=== PATIENT | male | born 1985 | race Caucasian/White ===

== ENCOUNTER 2018-11-16 17:58 | Inpatient (IN) | payer OTHER ==
[2018-11-16] MEDS ORDERED: LORazepam 2 MG/ML SDV VIAL ONE (18:08)
[2018-11-16] MEDS ORDERED: LORazepam 2 MG/ML SDV VIAL IVPUSH ONE (18:10)
[2018-11-16] MEDS ORDERED: SODIUM CHLORIDE 0.9% 500 ML INFUS.BAG IV ONE (18:14)
--- NOTE | 2018-11-16 18:35 | PDOC ---
History of Present Illness <Ruby Bacon - Last Filed: 11/16/18 20:31> - General History Source: Patient, Parent(s) Exam Limitations: No Limitations - History of Present Illness Initial Comments: 11/16/18 18:32 33yo M with PMH of alcohol use presenting to ED with parents for seizure. Per father, patient has been drinking approximately 1L of alcohol daily for the past year. Last drink was 11/08/2018 and patient presented to [facility] for withdrawal. There he was noted to have seizures and was in the ICU for DT. He was discharged today and on the way back home, he had a seizure in the car. Approximately 10m into being brought to the ED here, patient had another seizure. Father states that prior to the seizure, pt was having a hallucination of a butterfly and was tracking it. Pt givn 2mg IM Ativan and has returned to baseline. He denies headache, abdominal pain, n/v/d, chest pain, sob, back pain , hallucinations, paresthesias. PMD: none PSH: none PMH: none Allergies:nkda Social: alcohol use, marijuana use Meds: (from [facility]): folic acid, thiamine, multivitamin +folic acid <Larissa Araujo - Last Filed: 11/17/18 00:52> - General Chief Complaint: Seizure Stated Complaint: SEIZURE Time Seen by Provider: 11/16/18 18:11 Past History <Ruby Bacon - Last Filed: 11/16/18 20:31> <Larissa Araujo - Last Filed: 11/17/18 00:52> - Past Medical History Allergies/Adverse Reactions: Allergies Allergy/AdvReac Type Severity Reaction Status Date / Time No Known Drug Allergies Allergy Verified 11/16/18 18:30 Home Medications: Ambulatory Orders NK [No Known Home Medication] 11/16/18 *Physical Exam - Vital Signs Last Vital Signs Temp Pulse Resp BP Pulse Ox 98.7 F 86 18 141/90 100 11/16/18 18:31 11/16/18 18:31 11/16/18 18:31 11/16/18 18:31 11/16/18 18:31 <Ruby Bacon - Last Filed: 11/16/18 20:31> - Physical Exam General Appearance: Yes: Nourished, Appropriately Dressed. No: Apparent Distress HEENT: positive: EOMI, DEBORA, Other (superficial tongue laceration) Neck: positive: Trachea midline, Supple. negative: Lymphadenopathy (R), Lymphadenopathy (L) Respiratory/Chest: positive: Lungs Clear, Normal Breath Sounds. negative: Crackles, Rales, Rhonchi, Stridor, Wheezing Cardiovascular: positive: Regular Rhythm, Regular Rate, S1, S2. negative: Edema , JVD, Murmur Vascular Pulses: Dorsalis-Pedis (R): 2+, Doralis-Pedis (L): 2+ Gastrointestinal/Abdominal: positive: Normal Bowel Sounds, Soft. negative: Tender Musculoskeletal: negative: CVA Tenderness, Muscle Spasm Extremity: positive: Normal Capillary Refill, Other (RUE: old bruising on arm and forearm). 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 negative: Facial Droop, Numbness <Larissa Araujo - Last Filed: 11/17/18 00:52> ED Treatment Course - LABORATORY CBC & Chemistry Diagram: 11/16/18 18:36 11/16/18 18:36 - ADDITIONAL ORDERS Additional order review: Laboratory Results 11/16/18 11/16/18 11/16/18 18:36 18:36 18:36 PT with INR 12.70 INR 1.08 Sodium 141 Potassium 3.6 Chloride 104 Carbon Dioxide 13 L Anion Gap 24 H BUN 5.4 L Creatinine 1.0 Est GFR (CKD-EPI)AfAm 114.91 Est GFR (CKD-EPI)NonAf 99.15 Random Glucose 132 H Calcium 9.6 Total Bilirubin 0.6 AST 91 H ALT 31 Alkaline Phosphatase 62 Total Protein 7.4 Albumin 4.1 Opiates Screen Methadone Screen Barbiturate Screen Phencyclidine Screen Ur Amphetamines Screen MDMA (Ecstasy) Screen Benzodiazepines Screen Cocaine Screen U Marijuana (THC) Screen Alcohol, Quantitative < 3.0 11/16/18 18:30 PT with INR INR Sodium Potassium Chloride Carbon Dioxide Anion Gap BUN Creatinine Est GFR (CKD-EPI)AfAm Est GFR (CKD-EPI)NonAf Random Glucose Calcium Total Bilirubin AST ALT Alkaline Phosphatase Total Protein Albumin Opiates Screen Negative Methadone Screen Negative Barbiturate Screen Negative Phencyclidine Screen Negative Ur Amphetamines Screen Negative MDMA (Ecstasy) Screen Negative Benzodiazepines Screen Positive A* Cocaine Screen Negative U Marijuana (THC) Screen Negative Alcohol, Quantitative 11/16/18 18:36 RBC 3.55 L MCV 102.9 H MCHC 32.1 RDW 14.3 MPV 9.0 Neutrophils % 46.3 Lymphocytes % 30.0 Monocytes % 18.5 H Eosinophils % 2.8 Basophils % 2.4 H - RADIOLOGY Radiology Studies Ordered: Category Date Time Status CHEST X-RAY PORTABLE* [RAD] Stat Radiology 11/16/18 18:12 Completed - Medications Given in the ED: ED Medications Discontinued Medications Generic Name Dose Route Start Last Admin Trade Name Freq PRN Reason Stop Dose Admin Lorazepam 2 mg 11/16/18 18:05 11/16/18 19:01 Ativan Injection - IM 11/16/18 18:06 2 mg ONCE ONE Administration Lorazepam 2 mg 11/16/18 18:10 11/16/18 19:03 Ativan Injection - IVPUSH 11/16/18 18:11 2 mg ONCE ONE Administration Sodium Chloride 1,000 ml 11/16/18 18:14 11/16/18 19:10 Normal Saline - IV 11/16/18 18:15 1,000 ml ONCE ONE Administration <Ruby Bacon - Last Filed: 11/16/18 20:31> - LABORATORY CBC & Chemistry Diagram: 11/16/18 18:36 11/16/18 18:36 <Larissa Araujo - Last Filed: 11/17/18 00:52> Medical Decision Making - Critical Care Time Total Critical Care Time (minutes): 30 (seizure, alcohol withdrawal syndrome) Critical Care Statement: The care of this patient involved high complexity decision making to prevent further life threatening deterioration of the patient 's condition and/or to evaluate & treat vital organ system(s) failure or risk of failure. <Ruby Bacon - Last Filed: 11/16/18 20:31> - Critical Care Time Total Critical Care Time (minutes): 30 Critical Care Statement: The care of this patient involved high complexity decision making to prevent further life threatening deterioration of the patient 's condition and/or to evaluate & treat vital organ system(s) failure or risk of failure. - Medical Decision Making 11/16/18 18:42 33yo M with alcohol use presenting to ED with seizures. no h/o seizure d/o. likely 2/2 alcohol withdrawal. pt had witnessed seizure in ED with tongue biting, foaming and stiffness. 2mg IM ativan ordered; broke seizure. pt at baseline. labs wnl. MCV elevated. giving fluids, folic acid. pt has not had seizures since medications given. ekg: sinus bradycadia at 56bpm, no lexy elevations or depressions, intervals wnl. accepted by hospitalist. admitted to tele for withdrawal seizures. <Larissa Araujo - Last Filed: 11/17/18 00:52> Discharge <Ruby Bacon - Last Filed: 11/16/18 20:31> - Discharge Information Problems reviewed: Yes - Admission Yes <Larissa Araujo - Last Filed: 11/17/18 00:52> - Discharge Information Clinical Impression/Diagnosis: Seizure Alcohol withdrawal Qualifiers: Complication of substance-induced condition: with unspecified complication Qualified Code(s): F10.239 - Alcohol dependence with withdrawal, unspecified Condition: Stable
[2018-11-16 18:49] LABS: BASO % 2.4 % (0-2.0); EOS % 2.8 % (0-4.5); HEMATOCRIT 36.6 % (35.4-49); HEMOGLOBIN 11.7 GM/dL (11.7-16.9); MCHC 32.1 g/dl (32.0-35.9); MEAN CELL VOLUME 102.9 fl (80-96); MONO % 18.5 % (3.8-10.2); NEUT % 46.3 % (42.8-82.8); PLATELET COUNT 357 K/MM3 (134-434); RBC 3.55 M/mm3 (4.00-5.60); RDW 14.3 % (11.9-15.9); WHITE BLOOD COUNT 9.8 K/mm3 (4.0-10.0)
[2018-11-16 18:58] LABS: INR 1.08 (0.83-1.09); PROTHROMBIN TIME (PATIENT) 12.7 SEC (9.7-13.0)
--- NOTE | 2018-11-16 19:03 | PDOC ---
Attending Attestation - Resident Resident Name: Larissa Araujo - ED Attending Attestation I have performed the following: I have examined & evaluated the patient, The case was reviewed & discussed with the resident, I agree w/resident's findings & plan - HPI HPI: 11/16/18 18:58 33yo M with PMH of alcohol use presenting to ED with parents for seizure. Per father, patient has been drinking approximately 1L of alcohol daily for the past year. Last drink was 11/08/2018 and patient presented to [facility] and admitted to ICU x 1 week for acute alcohol withdrawal with DTs. He was discharged today and on the way back home, he had a seizure in the car, +hallucination. Father states that prior to the seizure, pt was having a hallucination of a butterfly and was tracking it. history provided by father at bedside. - Physicial Exam PE: 11/16/18 19:02 Agree with the resident's HPI and PE as documented in the electronic medical record. +actively seizing, foaming at mouth. in severe distress. EOMI, PERRL, neck supple. lungs with b/l rhonchi, +tachy. abdomen soft nontender.+increased tonicity and jerking (generalized) PRYOR x4, No peripheral edema. normal color for ethnicity, WWP. - Medical Decision Making 11/16/18 19:03 See HPI for details. Prior notes reviewed, including admissions, discharges and consultations. Vital signs reviewed, wnl. Vital Signs Temp Pulse Resp BP Pulse Ox 98.7 F 86 18 141/90 100 11/16/18 18:31 11/16/18 18:31 11/16/18 18:31 11/16/18 18:31 11/16/18 18:31 laboratory results and imaging reviewed, basic labs and lytes wnl, utox with benzo, as expected with etoh w/d treatment. EKG normal sinus rhythm, no interval abnormalities, narrow QRS, ST and T wave segments and morphology normal. Nonspecific T wave abnormalities ED course -interventions: ativan, o2, IVF on reassessment 1900 - back to baseline, awake and alert. monitoring for further sz give banana bag and repletion given alcohol abuse history. Admit for acute alcohol w/d seizure. Discussed results and management plan with pt and family member at bedside, agree with impression, treatment indications, recommendations and plan. s/o to hospitalist team regarding admission 11/16/18 20:30
[2018-11-16] MEDS ORDERED: FOLIC ACID INJECTION - 1 MG, THIAMINE HCL 100 MG, MULTIVIT INJECTION ADULT 10 ML in SOD... IVPB ONE ×2 (19:04→22:54)
[2018-11-16 19:10] LABS: COCAINE, UR NEGATIVE ng/ml (CUTOFF=300); METHADONE, UR NEGATIVE ng/ml (CUTOFF=300); OPIATES, URI NEGATIVE ng/ml (CUTOFF=300); PHENCYCLIDINE,URINE NEGATIVE ng/ml (CUTOFF=25); URINE AMPHETAMINES NEGATIVE ng/ml (CUTOFF=500); URINE BARBITURATES NEGATIVE ng/ml (CUTOFF=200)
[2018-11-16 19:14] LABS: URINE BENZODIAZEPINES POSITIVE ng/ml (CUTOFF=200)
[2018-11-16 19:15] LABS: ALBUMIN 4.1 g/dl (3.4-5.0); BILIRUBIN,TOTAL 0.6 mg/dL (0.2-1); BLOOD UREA NITROGEN 5.4 mg/dL (7-18); CALCIUM 9.6 mg/dL (8.5-10.1); POTASSIUM 3.6 mmol/L (3.5-5.1); TOT PROT 7.4 g/dl (6.4-8.2)
[2018-11-16 19:25] LABS: MACROCYTOSIS 2+; PLATELET ESTIMATE NORMAL
[2018-11-16] MEDS ORDERED: levETIRAcetam 500 MG TABLET (FP) PO ONE (21:21)
--- NOTE | 2018-11-16 22:55 | HP ---
CHIEF COMPLAINT: Seizures PCP: HCP: Uncle Jose ([phone]) HISTORY OF PRESENT ILLNESS: 33 y/o M with PMHx of EtOH use disorder, Hemophillia A, Paroxysmal AFib presents after a seizure. Patient was accompanied by both parents and his Uncle Jose (HCP) who aided in providing the HPI. Patient had his 1st EtOH withdrawal seizure 6-8 months ago while in [place]. Shortly after, he moved to [place] where he began drinking 1 liter of liquor daily. Patients had his last drink on 11/08, and his 2 uncles picked him up from [place] on 11/09 to bring him to [place]. Upon arriving in [place], patient had a withdrawal seizure for which he was driven to [facility]. He was admitted to the ICU until today 11/16; During his stay experienced multiple seizures and found to have PAF. He was discharged today 11/16 and was seizure free for >48 hours as per family. During the car ride home at 16:30, patient experienced a tonic clonic seizure with associated convulsions and tongue biting, no loss of bowel or bladder control, and was followed by a post ictal state where he was unable to recall the event. EMS was alerted who the patient at his home and brought the patient to [facility]. Upon arrival to the ED, patient experienced a 2nd seizure with similar convulsions, tongue biting, followed by a post ictal state. Family at bedside reports both seizures lasted 4-5 minutes and were approximately 45 minutes apart. Family reports that patient had hallucinations during his hospital stay at [facility] and again was hallucinating upon arrival to [facility]. ER course was notable for: (1) Banana Bag, NS 1L (2) Ativan 2mg (3) Recent Travel: From [place] PAST MEDICAL HISTORY: As above PAST SURGICAL HISTORY: Laparscopic Hip cartilage removal (family unable to recall which side), Tonsilectomy, Otoplasty Social History: Smokinppd since age 14 Alcohol: 1 liter whiskey, Last drink 11/08 Drugs: Marijuana, Mushrooms, Hallucinogenics Allergies No Known Drug Allergies Allergy (Verified 11/16/18 18:30) HOME MEDICATIONS: Home Medications Medication Instructions Recorded NK [No Known Home Medication] 11/16/18 REVIEW OF SYSTEMS As Per HPI PHYSICAL EXAMINATION Vital Signs - 24 hr 11/16/18 11/16/18 11/16/18 18:30 18:31 22:01 Temperature 98.7 F Pulse Rate 86 Pulse Rate [ 84 Right] Respiratory 18 17 Rate Blood Pressure 141/90 Blood Pressure 135/86 [Right Arm] O2 Sat by Pulse 98 100 98 Oximetry (%) GENERAL: A&Ox3, NAD HEAD: NCAT EYES: PERRL, EOMI EARS, NOSE, THROAT: Bite ghosh over tongue, Moist mucous membranes. NECK: Supple LUNGS: Diminished breath sounds at the bases. No wheezes, no crackles. HEART: Regular rate and rhythm, normal S1 and S2 without murmur ABDOMEN: Soft, nontender, not distended, + bowel sounds, no guarding, no rebound EXTREMITIES: 2+ pulses, No peripheral edema. NEUROLOGICAL: Cranial nerves II-XII intact. Normal speech. 5/5 muscle strength throughout. Gross sensation intact throughout. CIWA 11 PSYCHIATRIC: Cooperative. SKIN: Warm, dry. Diffuse Ecchymosis over the b/l upper extremities Laboratory Results - last 24 hr 11/16/18 11/16/18 11/16/18 18:30 18:36 18:36 WBC 9.8 RBC 3.55 L Hgb 11.7 Hct 36.6 MCV 102.9 H MCH 33.0 MCHC 32.1 RDW 14.3 Plt Count 357 MPV 9.0 Absolute Neuts (auto) 4.5 Neutrophils % 46.3 Neutrophils % (Manual) 34.0 L Band Neutrophils % 3.0 Lymphocytes % 30.0 Lymphocytes % (Manual) 29.0 Monocytes % 18.5 H Monocytes % (Manual) 16 H Eosinophils % 2.8 Eosinophils % (Manual) 5.0 H Basophils % 2.4 H Basophils % (Manual) 1.0 Myelocytes % (Man) 8 H Promyelocytes % (Man) 0 Blast Cells % (Manual) 0 Nucleated RBC % 0 Metamyelocytes 3 H Platelet Estimate Normal Macrocytosis 2+ PT with INR INR Sodium 141 Potassium 3.6 Chloride 104 Carbon Dioxide 13 L Anion Gap 24 H BUN 5.4 L Creatinine 1.0 Est GFR (CKD-EPI)AfAm 114.91 Est GFR (CKD-EPI)NonAf 99.15 Random Glucose 132 H Calcium 9.6 Total Bilirubin 0.6 AST 91 H ALT 31 Alkaline Phosphatase 62 Total Protein 7.4 Albumin 4.1 Opiates Screen Negative Methadone Screen Negative Barbiturate Screen Negative Phencyclidine Screen Negative Ur Amphetamines Screen Negative MDMA (Ecstasy) Screen Negative Benzodiazepines Screen Positive A* Cocaine Screen Negative U Marijuana (THC) Screen Negative Alcohol, Quantitative 11/16/18 11/16/18 18:36 18:36 WBC RBC Hgb Hct MCV MCH MCHC RDW Plt Count MPV Absolute Neuts (auto) Neutrophils % Neutrophils % (Manual) Band Neutrophils % Lymphocytes % Lymphocytes % (Manual) Monocytes % Monocytes % (Manual) Eosinophils % Eosinophils % (Manual) Basophils % Basophils % (Manual) Myelocytes % (Man) Promyelocytes % (Man) Blast Cells % (Manual) Nucleated RBC % Metamyelocytes Platelet Estimate Macrocytosis PT with INR 12.70 INR 1.08 Sodium Potassium Chloride Carbon Dioxide Anion Gap BUN Creatinine Est GFR (CKD-EPI)AfAm Est GFR (CKD-EPI)NonAf Random Glucose Calcium Total Bilirubin AST ALT Alkaline Phosphatase Total Protein Albumin Opiates Screen Methadone Screen Barbiturate Screen Phencyclidine Screen Ur Amphetamines Screen MDMA (Ecstasy) Screen Benzodiazepines Screen Cocaine Screen U Marijuana (THC) Screen Alcohol, Quantitative < 3.0 Active Medications Acetaminophen (Ofirmev Injection -) 1,000 mg IVPB Q6H PRN PRN Reason: HEADACHE Last Admin: 11/17/18 05:55 Dose: 1,000 mg Aspirin (Ecotrin -) 81 mg PO DAILY [facility] Folic Acid (Folic Acid -) 1 mg PO DAILY [facility] Levetiracetam (Keppra -) 500 mg PO BID [facility] Multivitamins/Minerals/Vitamin C (Tab-A-Vit -) 1 tab PO DAILY [facility] Thiamine HCl (Vitamin B1 -) 100 mg PO DAILY [facility] ASSESSMENT/PLAN: 33 y/o M with PMHx of EtOH use disorder, Hemophillia A, Paroxysmal AFib presents after a seizure. #Seizure -Unclear etiology; Less likely to be EtOH induced as patient has completed Detox protocol at [facility] -Head CT NonCon suggestive of 0.4 x 0.2 cm colloid cyst in the third ventrical -Stat 1000mg Levetiracetam given; Continue on 500mg BID -Neuro (Dr. Kerns) Consulted -Continue Bedrest, Seizure/Fall precautions #EtOH Use Disorder -CIWA 11 -Banana bag, THiamine, Folic acid, MVI -Monitor off of benzo protocol; Low threshold to restart however #PAF -[id number] score 0; Start on ASA -Hold off on Rate control -Check ECHO -Consider Cardio Consult #Macrocytosis -Check Folic acid, B12 #FEN -Banana Bag @ 125 mls/hr -Replete lytes PRN -NPO #PPx -DVT: SCDs Dispo: Admit to Tele Visit type - Emergency Visit Emergency Visit: Yes ED Registration Date: 11/16/18 Care time: The patient presented to the Emergency Department on the above date and was hospitalized for further evaluation of their emergent condition. - New Patient This patient is new to me today: Yes Date on this admission: 11/17/18 - Critical Care Critical Care patient: No ATTENDING PHYSICIAN STATEMENT I saw and evaluated the patient. I reviewed the resident's note and discussed the case with the resident. I agree with the resident's findings and plan as documented. SUBJECTIVE: OBJECTIVE: ASSESSMENT AND PLAN:
[2018-11-17 00:24] VITALS: BMI 21.9
[2018-11-17] MEDS: LORazepam 1 MG TABLET PO PRN ×2 (01:01→05:56)
[2018-11-17] MEDS ORDERED: ACETAMINOPHEN 1000 MG/100 ML VIAL (NON FORMULARY) IVPB PRN (01:40)
--- NOTE | 2018-11-17 02:11 | PN ---
Teaching Attending Note Name of Resident: Madeline Kathleen ATTENDING PHYSICIAN STATEMENT I saw and evaluated the patient. I reviewed the resident's note and discussed the case with the resident. I agree with the resident's findings and plan as documented. SUBJECTIVE: 33 y/o M with PMHx of EtOH use-drinks 1L liquor/day for past 2 years, Hemophillia A, Paroxysmal AFib presents after a seizure episode after being discharged from [facility]. Pt was hospitalized at [facility] for etoh withdrawal and believes to have had at least 2 seizure epsisodes there. ALso reports remote seizure several months ago while was was drinking. He says his last drink was about 11/08 on his bday. He reports that his brother has also has seizure episode. OBJECTIVE: Last Vital Signs Temp Pulse Resp BP Pulse Ox 98 F 64 17 120/70 98 11/16/18 23:30 11/16/18 23:30 11/16/18 23:30 11/16/18 23:30 11/16/18 23:30 gen - drowsy heent -tongue biting+ neck supple chest clear b/l cv-s1+s2+rrr abdomen -soft, nt, bs+ skin - eccymosis seen on arms b/l Abnormal Lab Results 11/16/18 11/16/18 11/16/18 18:30 18:36 18:36 RBC 3.55 L MCV 102.9 H Neutrophils % (Manual) 34.0 L Monocytes % 18.5 H Monocytes % (Manual) 16 H Eosinophils % (Manual) 5.0 H Basophils % 2.4 H Myelocytes % (Man) 8 H Metamyelocytes 3 H Carbon Dioxide 13 L Anion Gap 24 H BUN 5.4 L Random Glucose 132 H AST 91 H Benzodiazepines Screen Positive A* head ct reviewed 0.4cm x 0,2 cm hyperdense focus within ventral superior aspect of 3rd ventricle suggestive of colloid cyst, cxr reviewed ASSESSMENT AND PLAN: Seizure disorder may be related to etoh withdrawal. Head CT showed colloid cyst which may be focus of epilepsy. +tongue biting. Eccymosis on upper extremities likely related to seizure activity. HAGMA may be related to underlying lactic acidosis. Frequent episodes of seizures warrants AED at this time. Patient's last drink was 11/08 which should be past time frame for etoh withdrawal. -med/surg -npo -monitor vs closely -Keppra 1g IV was loaded, c/w 500mg IV bid -neurology evaluation -CIWA -check lactic acid -bed rest -fall precautions -lorazepam IV prn dvt ppx - scds
[2018-11-17 06:55] LABS: BASO % 0.6 % (0-2.0); EOS % 2.5 % (0-4.5); HEMATOCRIT 31.6 % (35.4-49); HEMOGLOBIN 10.9 GM/dL (11.7-16.9); LYMPH % 19.4 % (8-40); MCH 33.7 pg (25.7-33.7); MCHC 34.5 g/dl (32.0-35.9); MEAN CELL VOLUME 97.7 fl (80-96); MONO % 18.3 % (3.8-10.2); NEUT % 59.2 % (42.8-82.8); PLATELET COUNT 305 K/MM3 (134-434); RBC 3.23 M/mm3 (4.00-5.60); RDW 13.8 % (11.9-15.9); WHITE BLOOD COUNT 7.6 K/mm3 (4.0-10.0)
[2018-11-17 07:50] LABS: ALBUMIN 3.7 g/dl (3.4-5.0); BILIRUBIN,TOTAL 0.6 mg/dL (0.2-1); BLOOD UREA NITROGEN 4.2 mg/dL (7-18); CALCIUM 8.9 mg/dL (8.5-10.1); CREATININE 0.6 mg/dL (0.55-1.3); MAGNESIUM 1.8 mg/dL (1.8-2.4); PHOSPHOROUS 3.9 mg/dL (2.5-4.9); POTASSIUM 3.1 mmol/L (3.5-5.1); TOT PROT 6.5 g/dl (6.4-8.2)
[2018-11-17] MEDS ORDERED: MAGNESIUM OXIDE 400 MG TABLET (FP) PO ONE (07:56)
[2018-11-17] MEDS: KCL 10 MEQ IVPB 10 MEQ/100 ML INFUS.BAG IVPB SCH ×2 (08:22→10:38)
--- NOTE | 2018-11-17 09:48 | CON.NEURO ---
Consult Consult Specialty:: Saumya Referred by:: PCP Reason for Consultation:: Sz - History of Present Illness History of Present Illness: 3/2-year-old right-handed man with history of Seizure disorder Cardiac arrhythmia Paroxysmal A. fib Chronic low back pain Presented to the hospital after with seizure. Patient has been on detox program for of vocal abuse. Patient had seizures in the past. There is no family history of seizure. Patient came into the emergency room patient was stepwise in evaluated CAT scan of the head showedcolloid cyst incidental finding. Since admission to the hospital patient with no recurrence of the seizure patient was admitted to telemetry. Patient is currently not in atrial fibrillation. patient seen on tele with father Last drink was 11/08/18 Patient brother had Petit mal and they stopped at age 7 - History Source History Provided By: Patient, Medical Record Limitations to Obtaining History: No Limitations - Alcohol/Substance Use Hx Alcohol Use: Yes - Smoking History Smoking history: Current every day smoker Have you smoked in the past 12 months: Yes Aproximately how many cigarettes per day: 10 Home Medications - Allergies Allergies/Adverse Reactions: Allergies Allergy/AdvReac Type Severity Reaction Status Date / Time No Known Drug Allergies Allergy Verified 11/16/18 18:30 - Home Medications Home Medications: Ambulatory Orders NK [No Known Home Medication] 11/16/18 Family Medical History Family History: Unremarkable Review of Systems - Review of Systems Constitutional: reports: No Symptoms Eyes: reports: No Symptoms HENT: reports: No Symptoms Neurological: reports: Headache, Incoordination, Numbness Physical Exam-Neuro Vital Signs: Vital Signs Temperature 99.1 F 11/17/18 05:31 Pulse Rate 60 11/17/18 05:31 Respiratory Rate 17 11/17/18 05:31 Blood Pressure 144/98 11/17/18 05:31 O2 Sat by Pulse Oximetry (%) 98 11/17/18 05:05 Constitutional: Yes: Well Nourished Neck: Yes: WNL Cardiovascular: Yes: WNL Labs: CBC, BMP 11/17/18 05:38 11/17/18 06:00 INR, PTT INR 1.08 (0.83-1.09) 11/16/18 18:36 - Neuro Exam Level Of Consciousness: Yes: Oriented to Person, Oriented to Place, Oriented to Time Eyes: Yes: PERRLA Speech: WNL Dominant Hand: Right Cranial Nerves II-XII Intact: Yes Gag: Present DTR's: 0 Left Achilles, 0 Right Achilles, 1+ Left Bicep, 1+ Right Bicep, 1+ Left Brachioradialis, 1+ Right Brachioradialis Response to light touch: Abnormal Response to pain prick: Abnormal Motor Strength: 3/5: Left Arm, Right Arm, Left Leg, Right Leg Gait: Deferred Imaging - Results Cat Scan: Image Reviewed Problem List - Problems (1) Seizure Assessment/Plan: unfortunately the patient sustained in the past according to total seizure This will lower his threshold for having seizure disorder unfortunately Patient is currently with no active seizure 1. Neurochecks every 1 hour 2. Seizure precautions. 3. EEG. 4. Keppra 500 mg twice daily. 5. Ativan when necessary seizure. 6. Thiamine with folic acid. 7. Holter monitor and follow-up with cardiology evaluation thank you very much for allowing me to be part of this patient's neurological care Chase Kerns MD Code(s): R56.9 - UNSPECIFIED CONVULSIONS
--- NOTE | 2018-11-17 09:52 | EKG ---
Test Reason : Blood Pressure : / mmHG Vent. Rate : 056 BPM Atrial Rate : 056 BPM P-R Int : 136 ms QRS Dur : 082 ms QT Int : 454 ms P-R-T Axes : 023 016 029 degrees QTc Int : 438 ms SINUS BRADYCARDIA SEPTAL INFARCT , AGE UNDETERMINED T WAVE ABNORMALITY, CONSIDER ANTERIOR ISCHEMIA ABNORMAL ECG NO PREVIOUS ECGS AVAILABLE Confirmed by TEQUILA MINAYA MD ([id number]) on 11/17/2018 9:52:40 AM Referred By: Confirmed By:TEQUILA MINAYA MD
[2018-11-17] MEDS ORDERED: FOLIC ACID 1 MG TABLET (FP) PO SCH (10:00)
[2018-11-17] MEDS: MULTIVITAMINS (DAILY MVI) TABLET (FP) PO SCH (10:38)
[2018-11-17] MEDS: ASPIRIN COATED 81 MG TABLET.EC PO SCH (10:38)
[2018-11-17] MEDS: THIAMINE HCL 100 MG TABLET (FP) PO SCH (10:38)
[2018-11-17] MEDS: levETIRAcetam 500 MG TABLET (FP) PO SCH ×2 (10:38→21:23)
--- NOTE | 2018-11-17 11:05 | PN ---
Progress Note (short form) - Note Progress Note: c/o tongue pain and MCLEAN. states he has had seizure in the past related to ETOH use. was recently hospitalized at [facility] where he was hospitalized for 8 days for DT. did have seizures there. was not discharge on anti-eleptics or told in the past he would require them. had seizure on the way home from being discharged. only felt very weak prior to seizure. no other symptoms. +tongue biting. denies CP, SOB, fever, chills, N/V/C/D no hx of BZD abuse Current Medications Generic Name Dose Route Start Last Admin Trade Name Freq PRN Reason Stop Dose Admin Acetaminophen 1,000 mg 11/17/18 01:40 11/17/18 05:55 Ofirmev Injection - IVPB 1,000 mg Q6H PRN Administration HEADACHE Aspirin 81 mg 11/17/18 10:00 11/17/18 10:38 Ecotrin - PO 81 mg DAILY LUIGI Administration Folic Acid 1 mg 11/17/18 10:00 11/17/18 10:38 Folic Acid - PO 1 mg DAILY LUIGI Administration Levetiracetam 500 mg 11/17/18 10:01 11/17/18 10:38 Keppra - PO 500 mg BID LUIGI Administration Multivitamins/Minerals/Vitamin C 1 tab 11/17/18 10:00 11/17/18 10:38 Tab-A-Vit - PO 1 tab DAILY LUIGI Administration Thiamine HCl 100 mg 11/17/18 10:00 11/17/18 10:38 Vitamin B1 - PO 100 mg DAILY LUIGI Administration Last Vital Signs Temp Pulse Resp BP Pulse Ox 98.7 F 99 H 17 135/90 100 11/17/18 09:46 11/17/18 09:46 11/17/18 09:46 11/17/18 09:46 11/17/18 09:00 General NAD HEENT +L tongue laceration. no active bleeding CV S1 S2 RRR no murmur/rub/gallop Lungs CTA B/L no wheezing/rales/rhonchi Extremities no tremors CBCD WBC 7.6 K/mm3 (4.0-10.0) 11/17/18 05:38 RBC 3.23 M/mm3 (4.00-5.60) L 11/17/18 05:38 Hgb 10.9 GM/dL (11.7-16.9) L 11/17/18 05:38 Hct 31.6 % (35.4-49) L 11/17/18 05:38 MCV 97.7 fl (80-96) H 11/17/18 05:38 MCHC 34.5 g/dl (32.0-35.9) 11/17/18 05:38 RDW 13.8 % (11.9-15.9) 11/17/18 05:38 Plt Count 305 K/MM3 (134-434) 11/17/18 05:38 MPV 9.0 fl (7.5-11.1) 11/17/18 05:38 CMP Sodium 140 mmol/L (136-145) 11/17/18 06:00 Potassium 3.1 mmol/L (3.5-5.1) L 11/17/18 06:00 Chloride 104 mmol/L (98-107) 11/17/18 06:00 Carbon Dioxide 27 mmol/L (21-32) 11/17/18 06:00 Anion Gap 10 MMOL/L (8-16) 11/17/18 06:00 BUN 4.2 mg/dL (7-18) L 11/17/18 06:00 Creatinine 0.6 mg/dL (0.55-1.3) 11/17/18 06:00 Calcium 8.9 mg/dL (8.5-10.1) 11/17/18 06:00 Total Bilirubin 0.6 mg/dL (0.2-1) 11/17/18 06:00 AST 67 U/L (15-37) H 11/17/18 06:00 ALT 26 U/L (13-61) 11/17/18 06:00 Alkaline Phosphatase 52 U/L (45-117) 11/17/18 06:00 Total Protein 6.5 g/dl (6.4-8.2) 11/17/18 06:00 Albumin 3.7 g/dl (3.4-5.0) 11/17/18 06:00 A/P 33yo M with PMH remote ETOH abuse, Hemophilia A, ETOH withdrawal seizures and PAF presented after seizure x2 with active hallucinations.last drink 11/08/18 1. Seizure- likely from ETOH withdrawal vs BZD withdrawal. as he was treated with high doses of ativan at [facility]. has low threshold for seizures due to history. no other causes of seizures, head CT, labs, or signs of infection. started on keppra in the ER. will cont for now. ativan prn seizure activity. seizure precautions. neuro consulted 2. Hypokalemia- KCL IV 3. hypomagnesemia- Mg po 4. Remote ETOH abuse- was detoxed at [facility] this past week. no signs of active withdrawal. (MCLEAN more likely due to other causes). last drink 11/08. no indication for detox. counselled on need for continued abstinence 5. tongue laceration- due to seizure activity. lidocaine S&S 6. PAF- currently in sinus. on asa. 7. DVT ppx- EAM 8. will monitor for 24H. if remains seizure free can d/c home in next 24H Visit type - Emergency Visit Emergency Visit: Yes ED Registration Date: 11/16/18 Care time: The patient presented to the Emergency Department on the above date and was hospitalized for further evaluation of their emergent condition. - New Patient This patient is new to me today: Yes Date on this admission: 11/17/18 - Critical Care Critical Care patient: No - Discharge Referral Referred to [facility] Med P.C.: No
[2018-11-17] MEDS: ACETAMINOPHEN 325 MG TABLET (FP) PO PRN (11:13)
[2018-11-17] MEDS ORDERED: PT OWN MED DRAWER 7, Y5N ONE ×3 (13:02→21:56)
[2018-11-17] MEDS: LIDOCAINE VISCOUS 2% ORAL/TOP 20 ML UNIT-DOSE CUP MM PRN ×2 (13:13→21:58)
[2018-11-18] MEDS: ACETAMINOPHEN 325 MG TABLET (FP) PO PRN (00:33)
[2018-11-18] MEDS ORDERED: ZOLPIDEM TARTRATE 5 MG TABLET PO ONE (00:41)
[2018-11-18] MEDS ORDERED: LORazepam 1 MG TABLET PO SCH (05:00)
[2018-11-18 07:03] LABS: CREATININE 0.6 mg/dL (0.55-1.3); MAGNESIUM 2.2 mg/dL (1.8-2.4); POTASSIUM 3.3 mmol/L (3.5-5.1)
[2018-11-18] MEDS: LIDOCAINE VISCOUS 2% ORAL/TOP 20 ML UNIT-DOSE CUP MM PRN (08:19)
[2018-11-18 08:22] VITALS: BP 121/84; PULSE 70; TEMP 98.2
[2018-11-18] MEDS: ASPIRIN COATED 81 MG TABLET.EC PO SCH (09:06)
[2018-11-18] MEDS: levETIRAcetam 500 MG TABLET (FP) PO SCH (09:06)
[2018-11-18] MEDS: THIAMINE HCL 100 MG TABLET (FP) PO SCH (09:06)
[2018-11-18] MEDS: MULTIVITAMINS (DAILY MVI) TABLET (FP) PO SCH (09:06)
[2018-11-18] MEDS ORDERED: POTASSIUM CHLORIDE TABS 20 MEQ TABLET.ER (FP) PO ONE (11:00)
--- NOTE | 2018-11-18 12:19 | PN ---
Teaching Attending Note Name of Resident: [place]valles ATTENDING PHYSICIAN STATEMENT I saw and evaluated the patient. I reviewed the resident's note and discussed the case with the resident. I agree with the resident's findings and plan as documented. SUBJECTIVE:asymptomatic. no seizures or sensations of upcoming seizure. denies Cp, SoB, fever, chills, N/V/C/D OBJECTIVE: Last Vital Signs Temp Pulse Resp BP Pulse Ox 98.2 F 70 16 121/84 99 11/18/18 08:20 11/18/18 08:20 11/18/18 08:22 11/18/18 08:20 11/18/18 08:22 General NAD ASSESSMENT AND PLAN: 33yo M with PMH remote ETOH abuse, Hemophilia A, ETOH withdrawal seizures and PAF presented after seizure x2 with active hallucinations.last drink 11/08/18 1. Seizure- likely from ETOH withdrawal vs BZD withdrawal. no repeat seizure activity. on keppra BID. remaining workup is negative. can f/u neuro as outpatient for EEG and further testing. stressed importance of medication compliance and follow up. as he was treated with high doses of ativan at [facility]. has low threshold for seizures due to history. no other causes of seizures , head CT, labs, or signs of infection. started on keppra in the ER. will cont for now. ativan prn seizure activity. seizure precautions. neuro consulted 2. Hypokalemia- KCL po 3. hypomagnesemia- resolved 4. Remote ETOH abuse- was detoxed at [facility] this past week. no signs of active withdrawal. is scheduled to go to inpatient rehab center tomorrow. counselled on importance of abstinence. does not know name of facility he is attending. 5. tongue laceration- due to seizure activity. lidocaine S&S 6. PAF- currently in sinus. on asa. 7. DVT ppx- EAM 8. d/c home
--- NOTE | 2018-11-18 15:38 | DS ---
Physical Exam: SUBJECTIVE: Patient seen and examined OBJECTIVE: Vital Signs Period Temp Pulse Resp BP Sys/Beckwith Pulse Ox Last 24 Hr 98.0 F-98.6 F 43-79 16-18 115-129/69-90 99-99 PHYSICAL EXAM GENERAL: A&Ox3, NAD HEAD: NCAT EYES: PERRL, EOMI EARS, NOSE, THROAT: Bite ghosh over tongue, Moist mucous membranes. NECK: Supple LUNGS: Diminished breath sounds at the bases. No wheezes, no crackles. HEART: Regular rate and rhythm, normal S1 and S2 without murmur ABDOMEN: Soft, nontender, not distended, + bowel sounds, no guarding, no rebound EXTREMITIES: 2+ pulses, No peripheral edema. NEUROLOGICAL: Cranial nerves II-XII intact. Normal speech. 5/5 muscle strength throughout. Gross sensation intact throughout. CIWA 11 PSYCHIATRIC: Cooperative. SKIN: Warm, dry. Diffuse Ecchymosis over the b/l upper extremities LABS Laboratory Results - last 24 hr 11/18/18 05:10 Sodium 141 Potassium 3.3 L Chloride 104 Carbon Dioxide 28 Anion Gap 9 BUN 6.0 L Creatinine 0.6 Est GFR (CKD-EPI)AfAm 154.19 Est GFR (CKD-EPI)NonAf 133.04 Random Glucose 93 Calcium 9.0 Magnesium 2.2 HOSPITAL COURSE: 33 y/o M with PMHx of EtOH use disorder, Hemophillia A, Paroxysmal AFib presents after a seizure. Pt had recently completed EtOH at [facility] prior to admission. Given IVF, multivitamins, keppra. CT NonCon suggestive of 0.4 x 0.2 cm colloid cyst in the third ventrical, which Neurology thought was an incidental finding. Neuro thought an EEG would help evaluate further. It was determined that the EEG could be pursued as outpt. Pt discharged, plans to attend rehab [facility]. Date of Admission:11/16/18 Date of Discharge: 11/18/18 Minutes to complete discharge: 20 Discharge Summary Problems reviewed: Yes Reason For Visit: ALCOHOL WITHDRAWAL SYNDROME, SEIZURE Condition: Stable - Instructions Diet, Activity, Other Instructions: You were evaluated in the hospital for a seizure. You were started on a new antiseizure medication(Keppra). Please follow up with the following physicians in 1-2weeks after discharge: -PCP: --for follow-up bloodwork in one week to continue monitoring your low hemoglobin, low potassium --to discuss possible Holter monitoring -- information on a primary care doctor has been provided. please follow up with them once you complete your rehab -Neurologist(Dr Kerns): --for continued evaluation of your seizures with possible EEG to be done --to discuss follow-up for the small cyst(0.4cm) found in the CT of the head Medications: -NEW medications: --levetiracetam[KEPPRA] 500mg, twice daily -continue with your home medications(Aspirin, thiamine, folic acid, multivitamin ) Additional instructions: -avoid alcohol and illicit substance(eg. marijuana, crack, heroin, etc). Follow recommendations and support advice given forward by the rehab center you are scheduled to start attending soon. -You can not drive or operate heavy machinery until you are cleared by a neurologist and informed you are allowed to drive again. Seek immediate medical evaluation or go to the Emergency Department if you experience: -another seizure -severe headache, nausea, vomiting, confusion -fever, chills, abdominal pain Referrals: Tate Lopez MD [Staff Physician] - Chase Kerns MD [Staff Physician] - Disposition: HOME - Home Medications Comprehensive Discharge Medication List: Ambulatory Orders Acetaminophen [Tylenol .Regular Strength -] 650 mg PO Q6H PRN tablet 11/18/18 Aspirin Coated [Ecotrin -] 81 mg PO DAILY tablet.ec 11/18/18 Folic Acid 1 mg PO DAILY 11/18/18 Multivitamins [Multivit ([facility] Formulary)] 1 tab PO DAILY 11/18/18 Thiamine HCl [B-1] 100 mg PO DAILY 11/18/18 levETIRAcetam [Keppra -] 500 mg PO BID 30 Days #60 tablet 11/18/18 This patient is new to me today: No Emergency Visit: No Critical Care patient: No - Discharge Referral Referred to [facility] Med P.C.: No ATTENDING PHYSICIAN STATEMENT I saw and evaluated the patient. I reviewed the resident's note and discussed the case with the resident. I agree with the resident's findings and plan as documented. SUBJECTIVE: OBJECTIVE: ASSESSMENT AND PLAN:
[2018-11-19] MEDS ORDERED: LORazepam 0.5 MG TABLET PO PRN
[2018-11-19] MEDS ORDERED: LORazepam 0.5 MG TABLET PO SCH (05:00)
[2018-11-20] MEDS ORDERED: LORazepam 0.5 MG TABLET PO ONE (05:00)
== END 2018-11-18 15:18 | disposition home or self-care (01) | DRG 775 ==
LOC: JER 17:58 → JERBED 19:21 → J4W 23:01
PROVIDERS: ADMIT Internal Medicine; ATTEND Internal Medicine
DX: F13.239 Sedative, hypnotic or anxiolytic dependence with withdrawal, unspecified (principal); G40.909 Epilepsy, unspecified, not intractable, without status epilepticus; F10.239 Alcohol dependence with withdrawal, unspecified; R44.3 Hallucinations, unspecified; I48.0 Paroxysmal atrial fibrillation; D75.89 Other specified diseases of blood and blood-forming organs; M54.5 Low back pain; I49.9 Cardiac arrhythmia, unspecified; E87.6 Hypokalemia; E83.42 Hypomagnesemia; S01.512A Laceration without foreign body of oral cavity, initial encounter; D66 Hereditary factor VIII deficiency; G93.0 Cerebral cysts; R00.0 Tachycardia, unspecified; F12.90 Cannabis use, unspecified, uncomplicated; F16.90 Hallucinogen use, unspecified, uncomplicated; S60.229A Contusion of unspecified hand, initial encounter; E87.2 Acidosis
CPT/HCPCS: 36415; 70450-TC; 71045-TC-FY; 80048; 80053; 80307; 82607; 82746; 83735; 84100; 85025; 85610; 93005; 93010; 99284-25; J0131; J7030